=== PATIENT | female | born 1985 | race Two or more races ===

== ENCOUNTER 2021-07-27 11:36 | Emergency (ER) | payer MEDICAID, OTHER ==
[~2021-07-27] VITALS: Ht 157.5 cm; Wt 54.0 kg
[2021-07-27 11:59] LABS: Basophils # (auto) 0 10 ^3/uL (0-0.2); Basophils % (auto) 0.8 % (0.0-2.0); Eosinophils # (auto) 0.1 10 ^3/uL (0-0.8); Eosinophils % (auto) 2.3 % (0.0-7.0); Hematocrit 39.3 % (36.0-46.0); Hemoglobin 13.2 g/dL (12.2-16.2); Lymphocytes # (auto) 1.4 10 ^3/uL (0.4-5.4); Lymphocytes % (auto) 33.5 % (10.0-50.0); Mean Corpuscular Hemoglobin 31.9 pg (28.0-32.0); Mean Corpuscular Hgb Conc. 33.6 g/dL (32.0-36.0); Mean Corpuscular Volume 94.8 fL (80.0-100.0); Monocytes # (auto) 0.4 10 ^3/uL (0-1.3); Monocytes % (auto) 10.2 % (0.0-12.0); Neutrophils # (auto) 2.3 10 ^3/uL (1.6-8.6); Neutrophils % (auto) 53.2 % (37.0-80.0); Nucleated Red Blood Cells % 0.1 %; Red Blood Cells 4.15 10^6/uL (4.0-5.20); Red Cell Distribution Width 15.9 % (11.8-14.3); White Blood Cell 4.3 10^3/uL (4.4-10.8)
[2021-07-27 14:40] VITALS: BP 122/67
== END 2021-07-27 13:07 | disposition home or self-care (01) ==
LOC: ER 11:36
DX: O20.0 Threatened abortion (principal); F17.210 Nicotine dependence, cigarettes, uncomplicated; Z3A.10 10 weeks gestation of pregnancy
CPT/HCPCS: 36415; 76801; 84702; 85025

== ENCOUNTER 2025-05-24 07:48 | Emergency (ER) | payer MEDICAID ==
[~2025-05-24] VITALS: Ht 154.9 cm; Wt 67.4 kg
--- NOTE | 2025-05-24 08:21 | ED.PDOC ---
Back pain HPI HPI Comments A 40-year-old female with a past medical history of HIV, RT hand dominant, presents to the emergency department with a chief complaint of RT sided neck pain onset 2 weeks. Patient states she has been experiencing RT sided neck pain for the past 2 weeks, radiates down the RT upper extremity and pain worsens with movement. Patient has been taking Ibuprofen for pain with no improvement of symptoms. Has experienced similar episodes in the past only last 2-3 days. Last visit with I&D for HIV was around March 2025. No other symptoms or modifying factors present at this time. Denies injury, fall, headache Denies nausea, vomiting Denies numbness/tingling Chief Complaint: Neck Pain Time Seen by MD: 08:15 Primary Care Provider: URIEL Guajardo Notes: Nurses Notes, Medications, Allergies Allergies: Coded Allergies: NO KNOWN ALLERGIES (Unverified , 07/27/21) Home Meds Active Scripts Ibuprofen Micronized (Ibuprofen) 800 Mg Tab, 800 MG PO Q8HP PRN for 10 Days, #30 TAB 0 Refills Prov:KIMBERLY ASHER NP 05/24/25 Methocarbamol (Methocarbamol) 500 Mg Tab, 500 MG PO Q12HP PRN for 10 Days, #20 TAB 0 Refills Prov:KIMBERLY ASHER NP 05/24/25 Information Source: Patient Mode of Arrival: Ambulatory Timing: Weeks Duration: Since onset Location of Back pain: (R) Cervical Severity: Moderate Prehospital treatment: Pain Meds (Ibuprofen) Quality: Sharp Onset: Spontaneous Circumstance: Other Past Medical History PAST MEDICAL HISTORY: HIV Surgical History: Denies all surgeries [employer] History: No Pertinent [employer] History Family History Family History: Family hx of DM, Family hx of heart marco a, Family hx of HTN Social History Smoker: Cigarettes Alcohol: Occasionally Drugs: Marijuana Lives In: Home All Other Systems: Reviewed and Negative (as per HPI) Physical Exam General Appearance: Normal HEENT: Normal ENT Inspection, Pharynx Normal, TMs Normal Neck: Full Range of Motion, Non-Tender, Normal, Normal Inspection Respiratory: Chest Non-Tender, Lungs Clear, No Accessory Muscle Use, No Respiratory Distress, Normal Breath Sounds Cardiovascular: No Murmur, No Gallop, Regular Rate/Rhythm Breast Exam: Deferred Gastrointestinal: No Organomegaly, Non Tender, No Pulsatile Mass, Normal Bowel Sounds, Soft Genitalia: Deferred Pelvic: Deferred Rectal: Deferred Extremities: No calf tenderness, Normal capillary refill, Normal inspection, Normal range of motion, Non-tender, No pedal edema Musculoskeletal : Apperance: Normal Neurologic: Alert, free lance model II-XII nml as Tested, No Motor Deficits, Normal Affect, Normal Mood, No Sensory Deficits Cerebellar Function: Normal Reflexes: Normal Skin: Dry, Normal Color, Warm Lymphatic: No Adenopathy Was a procedure done? Was a procedure done?: No Back Pain Differential Dx Differential Diagnosis: Strain X-Ray, Labs, Meds, VS Vital Signs Date Time Temp Pulse Resp B/P (MAP) Pulse Ox O2 Delivery O2 Flow Rate FiO2 05/24/25 09:32 88 18 98 Room Air 05/24/25 09:32 98.7 88 18 134/64 (87) 98 98.7 05/24/25 07:48 98.2 77 18 127/73 98 98.2 Current Medications Medications (Trade) Dose Ordered Sig/April Route Start Time Stop Time Status Last Admin Ketorolac Tromethamine (Toradol Injection) 60 mg ONCE ONCE IM 05/24/25 08:45 05/24/25 08:46 DC 05/24/25 08:39 Methylprednisolone Sodium Succinate (Solu Medrol) 125 mg ONCE ONCE IM 05/24/25 08:45 05/24/25 08:46 DC 05/24/25 08:39 Acetaminophen/ Hydrocodone Bitart ([place] 7.5/325MG Tab) 1 tab ONCE ONCE PO 05/24/25 08:45 05/24/25 08:46 DC 05/24/25 08:38 X-Ray, Labs, Meds, VS Comment A 40-year-old female with a past medical history of HIV, RT hand dominant, presents to the emergency department with a chief complaint of RT sided neck pain onset 2 weeks. No gross abnormality on inspection. No shoulder drop visible. No clavicular tenderness on palpation. Palpation tenderness to coracoid process and acromion process. No scapular, supraspinatus, infraspinatus tenderness to touch. Limited flexion passive movement due to pain. Pain with abduction. Apley test Echevarria test Empty can test positive Patient was given:Toradol 60 mg IM, Solu-Medrol 125 mg IM, [place] 7.5/325 mg PO. Tolerated medications with no adverse reaction. ED Workup: Defer C-Spine imaging given negative by NEXUS criteria Given History, Exam the patient appears to have a cervical radiculopathy. Patient appears to be low risk for complications or other emergent conditions s uch as anginal equivalent, lew cervical instability, arterial dissection, osteomyelitis, epidural abscess, central cord syndrome, c-spine fracture, CVA, other spinal emergencies Rx: NSAIDs, outpatient physical therapy evaluation and recommendation for home exercises in the interim Disposition: Discharge. The patient has been given strict return precautions and understands the need to follow up within 48 hours with their primary care provider Patient is stable for discharge at this time. External notes reviewed. Test results and diagnostic imaging interpreted. All diagnostic findings, discharge care, education and instructions provided Follow-up with PCP in 2 to 3 days Patient verbalized understanding and agreed to treatment plan Vital signs stable, afebrile, no acute distress noted Patient ambulatory with strong steady gait Advised to return precautions for any new or worsening symptoms, return to ER immediately for re-evaluation Patient is aware that the purpose of this visit was for an acute medical emergency requiring emergent stabilization. Chronic conditions, including malignancies have not been ruled out. Patient is instructed to follow up with PCP as directed and discharge instructions for continued care and workup. If unable to arrange follow-up, patient is to return to the emergency department for reassessment. Patient (parent or legal guardian if applicable) was given verbal and written discharge instructions and acknowledges understanding. Additional MDM Review of External, Non-ED records: External records reviewed. Discussion with independent historian (EMS, family) history obtained from the patient/parents (if applicable) at bedside Chronic conditions affecting care: HIV Social determinants of health affecting care: None I considered escalation of care to admission for this patient, however given the reassuring workup, the patient is safe for outpatient management. Time of 1ST Reevaluation: 08:45 Reevaluation 1ST: Improved Patient Education/Counseling: Diagnosis, Treatment Family Education/Counseling: No Family Present SEPSIS Sepsis Screen Date sepsis recognized/suspect: May 24, 2025 Time Sepsis recognized/suspect: 747 Recent Procedure: No On Antibiotic Therapy: No Respiratory Rate >20: No Heart Rate >90: No Temp<36 C (96.8 F) or >38.3 C: No SBP <90 or MAP <65 mmHG: No New Acute Mental Status Change: No Is the patient on CPAP, BIPAP,: No Vital Signs Date Time Temp Pulse Resp B/P (MAP) Pulse Ox O2 Delivery O2 Flow Rate FiO2 05/24/25 09:32 88 18 98 Room Air 05/24/25 09:32 98.7 88 18 134/64 (87) 98 98.7 05/24/25 07:48 98.2 77 18 127/73 98 98.2 Medications Medications Dose Ordered Sig/April Route Start Time Stop Time Status Last Admin Dose Admin Acetaminophen/ Hydrocodone Bitart 1 tab ONCE ONCE PO 05/24/25 08:45 05/24/25 08:46 DC 05/24/25 08:38 Ketorolac Tromethamine 60 mg ONCE ONCE IM 05/24/25 08:45 05/24/25 08:46 DC 05/24/25 08:39 Methylprednisolone Sodium Succinate 125 mg ONCE ONCE IM 05/24/25 08:45 05/24/25 08:46 DC 05/24/25 08:39 Departure 1 Departure Time of Disposition: 09:23 Impression: Primary Impression: Cervical radiculopathy Disposition: 01 HOME / SELF CARE / HOMELESS Condition: Stable e-Prescriptions Ibuprofen Micronized (Ibuprofen) 800 Mg Tab 800 MG PO Q8HP PRN for 10 Days, #30 TAB 0 Refills Prov: KIMBERLY ASHER TECHNICAL SUPPORT MANAGER 05/24/25 Methocarbamol (Methocarbamol) 500 Mg Tab 500 MG PO Q12HP PRN for 10 Days, #20 TAB 0 Refills Prov: KIMBERLY ASHER TECHNICAL SUPPORT MANAGER 05/24/25 Critical Care Note Critical Care Time?: No Stability Stability form required: No Heart Score Heart Score: Heart Score Response (Comments) Value History N/A 0 EKG N/A 0 Age N/A 0 Risk Factors N/A 0 Troponin N/A 0 Total 0 I personally scribed for KIMBERLY ASHER TECHNICAL SUPPORT MANAGER ([email or web address]) on 05/24/25 at 08:21. Electronically submitted by Monse Gore ([email or web address]). I personally scribed for KIMBERLY ASHER TECHNICAL SUPPORT MANAGER ([email or web address]) on 05/24/25 at 08:34. Electronically submitted by Monse Gore ([email or web address]). KIMBERLY ASHER TECHNICAL SUPPORT MANAGER May 24, 2025 08:21
[2025-05-24] MEDS: HYDROcodone-ACET 7.5/325MG TAB PO ONE (08:38)
[2025-05-24] MEDS: methylPREDNISolone SOD SUCC 125 MG/2 ML VL IM ONE (08:39)
[2025-05-24] MEDS: KETOROLAC TROMETH 60MG/2ML VIAL IM ONE (08:39)
[2025-05-24] MEDS ORDERED: IBUP-1455 PO (09:24)
[2025-05-24] MEDS ORDERED: METH-1181 PO (09:24)
[2025-05-24 09:32] VITALS: BP 134/64; PULSE 88; RESP 18; TEMP 98.7; O2SAT 98
== END 2025-05-24 09:34 | disposition home or self-care (01) ==
LOC: ER 07:48
DX: M54.12 Radiculopathy, cervical region (principal); F17.210 Nicotine dependence, cigarettes, uncomplicated; Z21 Asymptomatic human immunodeficiency virus [HIV] infection status
CPT/HCPCS: 96372; 99284; J1885; J2919